=== PATIENT | female | born 1955 | race Caucasian/White ===

== ENCOUNTER 2018-03-01 08:00 | Day surgery (SDC) | payer OTHER ==
[2018-03-01] MEDS: SOD CHLORIDE 0.9% 1,000 ML IV (06:00)
[2018-03-01] MEDS ORDERED: DIPHENHYDRAMINE 50 MG INJ IV (11:30)
[2018-03-01] MEDS ORDERED: PROCHLORPERAZINE 10 MG INJ IV (11:30)
[2018-03-01] MEDS ORDERED: SUCCINYLCHOLINE CHLORIDE 100 MG/5 ML SYG IV (11:41)
[2018-03-01] MEDS ORDERED: PROPOFOL 20 ML (11:41)
[2018-03-01] MEDS ORDERED: ROCURONIUM 50 MG INJ (11:41)
[2018-03-01] MEDS ORDERED: FENTAnyl 50 MCG/ML VIAL (11:41)
[2018-03-01] MEDS ORDERED: LIDOCAINE 2% (SDV) 5 ML INJ (11:41)
[2018-03-01] MEDS ORDERED: MIDAZOLAM 1 MG/ML 2 ML INJ (11:41)
[2018-03-01] MEDS ORDERED: ROPIVACAINE 0.5 % 30 ML VIAL (11:44)
[2018-03-01] MEDS ORDERED: CEFAZOLIN 1 GM INJ (12:18)
[2018-03-01] MEDS ORDERED: DEXAMETHASONE 4 MG/ML 1 ML INJ (12:19)
[2018-03-01] MEDS ORDERED: ONDANSETRON 4 MG INJ (12:19)
[2018-03-01] MEDS ORDERED: FAMOTIDINE 20 MG INJ (12:19)
[2018-03-01] MEDS ORDERED: SUGAMMADEX SODIUM 200 MG/2 ML VIAL IV ×2 (12:39→12:53)
[2018-03-01] MEDS ORDERED: KETOROLAC 30 MG INJ (12:49)
[2018-03-01] MEDS ORDERED: HYDROCODONE/APAP (5/325) TAB PO (13:00)
[2018-03-01] MEDS: CEFAZOLIN 2 GM/50 ML (PMX) 50 ML IVPB (13:11)
[2018-03-01] MEDS: FENTAnyl 50 MCG/ML VIAL IV (13:11)
[2018-03-01] MEDS: ONDANSETRON 4 MG INJ IV (13:12)
[2018-03-01] MEDS: HYDROmorphONE 1 MG/5 ML IV SYRINGE IV (13:20)
[2018-03-01] MEDS: MEPERIDINE 25 MG INJ IV (13:20)
[2018-03-01] MEDS: OXYCODONE/ACETAMINOPHEN (5/325) TAB PO (14:45)
== END 2018-03-01 15:00 | disposition home or self-care (01) ==
LOC: SDS 08:00
DX: K80.10 Calculus of gallbladder with chronic cholecystitis without obstruction (principal); K66.0 Peritoneal adhesions (postprocedural) (postinfection); I10 Essential (primary) hypertension; E78.5 Hyperlipidemia, unspecified
CPT/HCPCS: 47562; 88304